=== PATIENT | female | born 1945 | race Caucasian/White ===

== ENCOUNTER 2017-06-10 16:27 | Observation (INO) | payer MEDICAID ==
[~2017-06-10] VITALS: Ht 152.4 cm; Wt 55.8 kg
[2017-06-10 18:46] LABS: BASOPHILS % 1.2 % (0.0-2.0); HEMATOCRIT. 34.5 % (36.0-48.0); HEMOGLOBIN. 11.6 g/dL (12.0-16.0); LYMPHOCYTES % 28.4 % (20.0-50.0); MEAN CORPUSCULAR HEMOGLOBIN 28.9 pg (28.0-32.0); MEAN CORPUSCULAR VOLUME 85.7 fL (81.0-99.0); MEAN PLATELET VOLUME 9.5 fl (7.4-10.4); MONOCYTES % 6.5 % (2.0-8.0); NEUTROPHILS % 61.9 % (40.0-76.0); PLATELET 217 x1000/uL (130-400); RED BLOOD CELL COUNT 4.03 mill/uL (4.2-5.4); RED CELL DISTRIBUTION WIDTH 14.6 % (11.6-14.6)
[2017-06-10 18:51] LABS: INR 0.9; PROTHROMBIN TIME 9.5 sec (9.4-11.6)
[2017-06-10 18:55] LABS: CHLORIDE 111 mEq/L (98-107)
[2017-06-10] MEDS ORDERED: SODIUM CHLORIDE 0.9% 1,000 ML IV ONE (19:18)
[2017-06-10] MEDS ORDERED: LOSA25TA12 PO (21:33)
[2017-06-10] MEDS ORDERED: NORT10CA PO (21:33)
[2017-06-10] MEDS ORDERED: HYDR-4134 PO (21:34)
[2017-06-10] MEDS ORDERED: AMLO10TA80 PO (21:35)
[2017-06-10] MEDS ORDERED: ATEN50TA PO (21:35)
[2017-06-10] MEDS ORDERED: AMLODIPINE 10MG TABLET PO ONE (21:45)
[2017-06-11] VITALS (7 sets, daily range): BP systolic 144–184; BP diastolic 49–82
[2017-06-11] MEDS ORDERED: DEXTROSE 50% WATER 50ML SYRINGE IV PRN (04:15)
[2017-06-11] MEDS: HYDRALAZINE HCL 50MG TABLET PO SCH ×3 (06:30→21:51)
[2017-06-11] MEDS: NITROGLYCERIN OINT 1GM/INCH UDPKT TD SCH ×3 (06:30→17:12)
[2017-06-11] MEDS: BLOOD SUGAR DIAGNOSTIC STRIP TEST SCH ×4 (06:33→21:48)
[2017-06-11] MEDS: INSULIN LISPRO 100 UNITS/ML SUBCUT SCH ×4 (06:34→21:49)
[2017-06-11] MEDS: ACETAMINOPHEN 325MG TABLET PO PRN ×2 (06:35→17:13)
[2017-06-11] MEDS: SODIUM CHLORIDE 0.9% 1,000 ML IV SCH (06:36)
[2017-06-11] MEDS: NORTRIPTYLINE HCL 10MG CAPSULE PO SCH (08:42)
[2017-06-11] MEDS: ATENOLOL 50 MG TABLET PO SCH (08:42)
[2017-06-11] MEDS: HEPARIN 5000 UNITS/ML VIAL SUBCUT SCH ×2 (08:43→21:48)
[2017-06-11] MEDS: AMLODIPINE 10MG TABLET PO SCH (08:43)
[2017-06-11] MEDS: LOSARTAN POTASSIUM 100 MG TABLET PO SCH (08:43)
[2017-06-11] MEDS ORDERED: MEDICATION NOT ON FORMULARY EA (Nortriptyline Hcl 1 CAP) PO SCH (09:00)
[2017-06-11 09:31] LABS: BASOPHILS % 0.7 % (0.0-2.0); HEMATOCRIT. 32.8 % (36.0-48.0); HEMOGLOBIN. 10.9 g/dL (12.0-16.0); LYMPHOCYTES % 32.7 % (20.0-50.0); MEAN CORPUSCULAR HEMOGLOBIN 28.3 pg (28.0-32.0); MEAN CORPUSCULAR VOLUME 85.6 fL (81.0-99.0); MEAN PLATELET VOLUME 9.4 fl (7.4-10.4); MONOCYTES % 7.6 % (2.0-8.0); PLATELET 238 x1000/uL (130-400); RED BLOOD CELL COUNT 3.83 mill/uL (4.2-5.4); RED CELL DISTRIBUTION WIDTH 14.9 % (11.6-14.6)
[2017-06-11] MEDS ORDERED: CLONIDINE 0.1MG TABLET PO PRN (12:15)
[2017-06-11] MEDS: GABAPENTIN 300MG CAPSULE PO SCH ×2 (13:22→21:50)
[2017-06-12] VITALS (7 sets, daily range): BP systolic 126–154; BP diastolic 46–62
[2017-06-12] MEDS: NITROGLYCERIN OINT 1GM/INCH UDPKT TD SCH ×4 (00:16→17:09)
[2017-06-12] MEDS: SODIUM CHLORIDE 0.9% 1,000 ML IV SCH (00:16)
[2017-06-12] MEDS: HYDRALAZINE HCL 50MG TABLET PO SCH ×2 (06:02→13:14)
[2017-06-12] MEDS: BLOOD SUGAR DIAGNOSTIC STRIP TEST SCH ×3 (06:04→17:40)
[2017-06-12] MEDS: GABAPENTIN 300MG CAPSULE PO SCH ×2 (06:04→13:13)
[2017-06-12] MEDS: INSULIN LISPRO 100 UNITS/ML SUBCUT SCH ×2 (08:10→13:14)
[2017-06-12] MEDS: ATENOLOL 50 MG TABLET PO SCH (09:00)
[2017-06-12] MEDS: NORTRIPTYLINE HCL 10MG CAPSULE PO SCH (09:28)
[2017-06-12] MEDS: LOSARTAN POTASSIUM 100 MG TABLET PO SCH (09:28)
[2017-06-12] MEDS: AMLODIPINE 10MG TABLET PO SCH (09:28)
[2017-06-12] MEDS: HEPARIN 5000 UNITS/ML VIAL SUBCUT SCH (09:29)
== END 2017-06-12 18:33 | disposition home or self-care (01) ==
LOC: ER 16:36 → 7WST 21:00 → INTOOBSV 21:00 → EDBEDREQTM 21:02 → EDBEDREQ 21:02 → ENRESERV 23:03
PROVIDERS: ADMIT Internal Medicine; ATTEND Internal Medicine
DX: I12.9 Hypertensive chronic kidney disease with stage 1 through stage 4 chronic kidney disease, or unspecified chronic kidney disease (principal); N18.9 Chronic kidney disease, unspecified; E11.22 Type 2 diabetes mellitus with diabetic chronic kidney disease; E43 Unspecified severe protein-calorie malnutrition; Z82.49 Family history of ischemic heart disease and other diseases of the circulatory system
CPT/HCPCS: 36415; 71045; 80048; 80053; 82962; 85025; 85610; 96360; 96361; 96372; 99285; G0378; J1644; J1815; J7030

== ENCOUNTER 2017-11-28 23:43 | Inpatient (IN) | payer MEDICAID ==
[~2017-11-28] VITALS: Ht 149.9 cm; Wt 54.0 kg
[~2017-11-28 23:43] MED LIST: AMLO10TA80 PO; ATEN50TA PO; HYDR-4134 PO; LOSA25TA12 PO; NORT10CA PO
[2017-11-29] VITALS (14 sets, daily range): BP systolic 150–192; BP diastolic 40–116
[2017-11-29] MEDS ORDERED: KETOROLAC 30MG/ML VIAL IV STA (03:00)
[2017-11-29 03:46] LABS: BASOPHILS % 0.1 % (0.0-2.0); EOSINOPHILS % 0.2 % (0.0-5.0); HEMATOCRIT. 25.7 % (36.0-48.0); LYMPHOCYTES % 12.7 % (20.0-50.0); MEAN CORPUSCULAR HEMOGLOBIN 29.7 pg (28.0-32.0); MEAN CORPUSCULAR VOLUME 84.3 fL (81.0-99.0); MEAN PLATELET VOLUME 9.7 fl (7.4-10.4); PLATELET 178 x1000/uL (130-400); RED BLOOD CELL COUNT 3.05 mill/uL (4.2-5.4); RED CELL DISTRIBUTION WIDTH 13.5 % (11.6-14.6)
[2017-11-29 03:47] LABS: CHLORIDE 82 mEq/L (98-107)
[2017-11-29 04:00] LABS: D-DIMER 1.87 mg/L FEU (<0.50); PARTIAL THROMBOPLASTIN TIME 29.7 sec (23.4-31.0); PROTHROMBIN TIME 10.4 sec (9.4-11.6)
[2017-11-29] MEDS ORDERED: ENOXAPARIN 60MG/0.6ML SYR SUBCUT NR (05:15)
[2017-11-29] MEDS ORDERED: SODIUM CHLORIDE 0.9% 1,000 ML IV NR (05:15)
[2017-11-29] MEDS ORDERED: FURO20TA4 PO (06:05)
[2017-11-29] MEDS ORDERED: ATEN50TA PO (06:05)
[2017-11-29] MEDS ORDERED: VIT1TABL71 PO (06:05)
[2017-11-29] MEDS ORDERED: SERT50TA12 PO (06:05)
[2017-11-29] MEDS ORDERED: LOSA100T14 PO (06:05)
[2017-11-29] MEDS ORDERED: SODI650T PO (06:05)
[2017-11-29] MEDS ORDERED: VIT1TABL86 PO (06:05)
[2017-11-29] MEDS ORDERED: ONDANSETRON HCL 4MG/2ML VIAL IV PRN (08:30)
[2017-11-29] MEDS ORDERED: IPRATROPIUM/ALBUTEROL 0.5-3(2.5)MG/3ML NEB INH PRN (08:30)
[2017-11-29] MEDS ORDERED: NITROGLYCERIN 0.4MG TABLET SL SL PRN (08:30)
[2017-11-29] MEDS ORDERED: ENOXAPARIN 40MG/0.4ML SYR SUBCUT SCH (08:30)
[2017-11-29] MEDS ORDERED: NA PHOS,M-B/NA PHOS,DI-BA ENEMA 118ML PR PRN (08:30)
[2017-11-29] MEDS ORDERED: ZOLPIDEM TARTRATE 5MG TABLET PO PRN (08:30)
[2017-11-29] MEDS ORDERED: LORAZEPAM 0.5MG TABLET PO PRN (08:30)
[2017-11-29] MEDS ORDERED: MAGNESIUM/ALUMINUM HYDROXIDE/SIMETHICONE 30ML UDC PO PRN (08:30)
[2017-11-29] MEDS ORDERED: FAMOTIDINE 20MG TABLET PO SCH (09:00)
[2017-11-29] MEDS: METOPROLOL TARTRATE 25MG TABLET PO SCH ×2 (09:00→21:08)
[2017-11-29] MEDS ORDERED: ONDANSETRON 4MG ODT PO PRN (09:15)
[2017-11-29] MEDS: FAMOTIDINE 20MG TABLET PO SCH (09:16)
[2017-11-29] MEDS: FOLIC ACID/VITAMIN B COMP W-C TABLET PO SCH (09:16)
[2017-11-29] MEDS: AMLODIPINE 10MG TABLET PO SCH (09:17)
[2017-11-29] MEDS ORDERED: SODIUM CHLORIDE 0.9% 1,000 ML IV SCH (09:30)
[2017-11-29] MEDS ORDERED: GABA-529 MT (10:51)
[2017-11-29] MEDS: FUROSEMIDE 40MG/4ML VIAL IVP SCH (11:12)
[2017-11-29 11:31] LABS: BG BASE EXCESS -9.5 mmol/L (-2.0-2.0); BG CARBOXYHEMOGLOBIN 0.3 % (0.5-1.5); BG DEOXYHEMOGLOBIN 10.1 % (0.0-5.0); BG FRACTION INSPIRED OXYGEN 21; BG HCO3 ACT 15.4 mmol/L (22.0-26.0); BG METHEMOGLOBIN 0.3 % (0.0-1.5); BG OXYGEN SATURATION 89.8 % (92.0-98.5); BG OXYHEMOGLOBIN 89.3 % (94.0-97.0); BG PCO2 30.3 mmHg (35.0-45.0); BG PH 7.325 (7.350-7.450); BG PO2 58.6 mmHg (75.0-100.0); BG SAMPLE SITE RIGHT RADIAL; BG TOTAL HEMOGLOBIN 10.1 g/dL (12.0-18.0); BG VENT MODE ROOM AIR
[2017-11-29] MEDS: MORPHINE SULFATE 4 MG/ML CPJ (NOT FOR IM USE) IV PRN (11:42)
[2017-11-29] MEDS ORDERED: SODIUM CHLORIDE 3% 500 ML IV SCH (12:00)
[2017-11-29] MEDS ORDERED: GABAPENTIN 100MG CAPSULE PO SCH (14:00)
[2017-11-29] MEDS: GABAPENTIN 100MG CAPSULE PO SCH ×2 (15:13→21:27)
[2017-11-29 16:31] LABS: CREATINE KINASE MB FRACTION 14.4 ng/mL (0.5-3.6)
[2017-11-29] MEDS: IPRATROPIUM/ALBUTEROL 0.5-3(2.5)MG/3ML NEB HHN SCH ×2 (16:53→20:04)
[2017-11-29 17:01] LABS: SODIUM URINE RANDOM 51 mEq/L
[2017-11-29 17:07] LABS: CANNABINOID URINE SCREEN NEGATIVE (NEGATIVE); PHENCYCLIDINE URINE SCREEN NEGATIVE (NEGATIVE)
[2017-11-29 17:08] LABS: *AMPHETAMINES SCREEN URINE NEGATIVE (NEGATIVE); *BARBITURATES SCREEN URINE NEGATIVE (NEGATIVE); *BENZODIAZEPINES SCREEN URINE NEGATIVE (NEGATIVE); *COCAINE SCREEN URINE NEGATIVE (NEGATIVE); METHADONE URINE SCREEN NEGATIVE (NEGATIVE); OPIATES URINE SCREEN NEGATIVE (NEGATIVE)
[2017-11-29] MEDS ORDERED: DEXTROSE 50% WATER 50ML SYRINGE IV PRN (18:45)
[2017-11-29] MEDS ORDERED: EPOETIN ALFA 4000UNITS/ML VIAL SUBCUT SCH (21:00)
[2017-11-29] MEDS: BLOOD SUGAR DIAGNOSTIC STRIP TEST SCH (21:09)
[2017-11-29] MEDS: INSULIN LISPRO 100 UNITS/ML SUBCUT SCH (21:24)
[2017-11-29 21:58] LABS: CREATINE KINASE MB FRACTION 15.6 ng/mL (0.5-3.6)
[2017-11-30] VITALS (15 sets, daily range): BP systolic 124–177; BP diastolic 51–88
[2017-11-30] MEDS: CLONIDINE 0.1MG TABLET PO PRN (01:13)
[2017-11-30] MEDS: IPRATROPIUM/ALBUTEROL 0.5-3(2.5)MG/3ML NEB HHN SCH ×3 (01:16→20:50)
[2017-11-30] MEDS: BLOOD SUGAR DIAGNOSTIC STRIP TEST SCH ×4 (06:36→21:21)
[2017-11-30] MEDS: GABAPENTIN 100MG CAPSULE PO SCH ×3 (06:37→21:32)
[2017-11-30 06:47] LABS: BASOPHILS % 0.4 % (0.0-2.0); EOSINOPHILS % 0.9 % (0.0-5.0); HEMATOCRIT. 21.6 % (36.0-48.0); HEMOGLOBIN. 7.6 g/dL (12.0-16.0); LYMPHOCYTES % 20.2 % (20.0-50.0); MEAN CORPUSCULAR HEMOGLOBIN 29.6 pg (28.0-32.0); MEAN PLATELET VOLUME 9.8 fl (7.4-10.4); MONOCYTES % 8.3 % (2.0-8.0); NEUTROPHILS % 70.2 % (40.0-76.0); PLATELET 164 x1000/uL (130-400); RED BLOOD CELL COUNT 2.58 mill/uL (4.2-5.4); RED CELL DISTRIBUTION WIDTH 13.5 % (11.6-14.6)
[2017-11-30] MEDS: INSULIN LISPRO 100 UNITS/ML SUBCUT SCH ×4 (07:20→21:00)
[2017-11-30 07:43] LABS: PHOSPHORUS 5.5 mg/dL (2.5-4.9)
[2017-11-30] MEDS: DOCUSATE SODIUM 100MG CAPSULE PO PRN (07:53)
[2017-11-30] MEDS: FUROSEMIDE 40MG/4ML VIAL IVP SCH (07:53)
[2017-11-30] MEDS: FOLIC ACID/VITAMIN B COMP W-C TABLET PO SCH (07:53)
[2017-11-30] MEDS: FAMOTIDINE 20MG TABLET PO SCH (07:53)
[2017-11-30] MEDS: METOPROLOL TARTRATE 25MG TABLET PO SCH ×2 (07:53→21:32)
[2017-11-30] MEDS: AMLODIPINE 10MG TABLET PO SCH (07:53)
[2017-11-30] MEDS: ENOXAPARIN 30MG/0.3ML SYR SUBCUT SCH (07:54)
[2017-11-30] MEDS ORDERED: NA PHOS,M-B/NA PHOS,DI-BA ENEMA 118ML PR PRN (11:00)
[2017-11-30 11:26] LABS: CANNABINOID URINE SCREEN NEGATIVE (NEGATIVE); PHENCYCLIDINE URINE SCREEN NEGATIVE (NEGATIVE)
[2017-11-30 11:27] LABS: *AMPHETAMINES SCREEN URINE NEGATIVE (NEGATIVE); *BARBITURATES SCREEN URINE NEGATIVE (NEGATIVE); *BENZODIAZEPINES SCREEN URINE NEGATIVE (NEGATIVE); *COCAINE SCREEN URINE NEGATIVE (NEGATIVE); METHADONE URINE SCREEN NEGATIVE (NEGATIVE); OPIATES URINE SCREEN NEGATIVE (NEGATIVE)
[2017-11-30 12:30] LABS: CREATINE KINASE MB FRACTION 8.4 ng/mL (0.5-3.6)
[2017-11-30 13:28] LABS: TOTAL IRON BINDING CAPACITY 242 ug/dL (250-450)
[2017-11-30 13:41] LABS: HEPATITIS B CORE AB IGM NEGATIVE
[2017-11-30 13:54] LABS: HEPATITIS B SURFACE ANTIGEN REACTIVE PEND CONFIR
[2017-11-30] MEDS: MORPHINE SULFATE 4 MG/ML CPJ (NOT FOR IM USE) IV PRN (20:26)
[2017-11-30] MEDS: EPOETIN ALFA 10000UNITS/ML VIAL SUBCUT SCH (21:32)
[2017-12-01] VITALS (12 sets, daily range): BP systolic 126–161; BP diastolic 58–84
[2017-12-01] MEDS: IPRATROPIUM/ALBUTEROL 0.5-3(2.5)MG/3ML NEB HHN SCH ×4 (00:55→20:12)
[2017-12-01] MEDS: BLOOD SUGAR DIAGNOSTIC STRIP TEST SCH ×4 (06:27→20:59)
[2017-12-01] MEDS: GABAPENTIN 100MG CAPSULE PO SCH ×3 (06:31→21:00)
[2017-12-01] MEDS: LACTULOSE 20G/30ML UDC PO PRN (06:31)
[2017-12-01] MEDS: INSULIN LISPRO 100 UNITS/ML SUBCUT SCH ×4 (07:20→20:59)
[2017-12-01 07:48] LABS: BASOPHILS % 0.5 % (0.0-2.0); HEMATOCRIT. 24.8 % (36.0-48.0); HEMOGLOBIN. 8.6 g/dL (12.0-16.0); LYMPHOCYTES % 19.2 % (20.0-50.0); MEAN CORPUSCULAR HEMOGLOBIN 29.5 pg (28.0-32.0); MEAN CORPUSCULAR VOLUME 85.3 fL (81.0-99.0); MEAN PLATELET VOLUME 9.5 fl (7.4-10.4); NEUTROPHILS % 72.3 % (40.0-76.0); PLATELET 207 x1000/uL (130-400); RED BLOOD CELL COUNT 2.91 mill/uL (4.2-5.4)
[2017-12-01 08:02] LABS: PHOSPHORUS 3.7 mg/dL (2.5-4.9)
[2017-12-01 08:07] LABS: CREATINE KINASE MB FRACTION 18.6 ng/mL (0.5-3.6)
[2017-12-01] MEDS: DOCUSATE SODIUM 100MG CAPSULE PO PRN (08:11)
[2017-12-01] MEDS: FOLIC ACID/VITAMIN B COMP W-C TABLET PO SCH (08:11)
[2017-12-01] MEDS: FAMOTIDINE 20MG TABLET PO SCH (08:11)
[2017-12-01] MEDS: ENOXAPARIN 30MG/0.3ML SYR SUBCUT SCH (08:12)
[2017-12-01] MEDS: METOPROLOL TARTRATE 25MG TABLET PO SCH ×2 (08:12→21:00)
[2017-12-01] MEDS: FUROSEMIDE 40MG/4ML VIAL IVP SCH (08:12)
[2017-12-01] MEDS: AMLODIPINE 10MG TABLET PO SCH (08:12)
[2017-12-01] MEDS: NITROGLYCERIN OINT 1GM/INCH UDPKT TD SCH ×2 (12:05→17:31)
[2017-12-01] MEDS: ASPIRIN 81MG EC TABLET PO SCH ×2 (12:05→16:45)
[2017-12-01] MEDS: ATORVASTATIN CALCIUM 10MG TABLET PO SCH (20:59)
[2017-12-02] VITALS (16 sets, daily range): BP systolic 107–177; BP diastolic 50–90
[2017-12-02] MEDS: IPRATROPIUM/ALBUTEROL 0.5-3(2.5)MG/3ML NEB HHN SCH ×4 (01:54→19:35)
[2017-12-02] MEDS: NITROGLYCERIN OINT 1GM/INCH UDPKT TD SCH ×4 (03:03→17:39)
[2017-12-02] MEDS: MORPHINE SULFATE 4 MG/ML CPJ (NOT FOR IM USE) IV PRN ×2 (03:04→17:38)
[2017-12-02 05:50] LABS: CHLORIDE 100 mEq/L (98-107)
[2017-12-02 05:58] LABS: PHOSPHORUS 3.3 mg/dL (2.5-4.9)
[2017-12-02 06:01] LABS: BASOPHILS % 0.5 % (0.0-2.0); CREATINE KINASE 292 IU/L (26-192); EOSINOPHILS % 1.3 % (0.0-5.0); HEMOGLOBIN. 8.1 g/dL (12.0-16.0); LYMPHOCYTES % 14.6 % (20.0-50.0); MEAN CORPUSCULAR HEMOGLOBIN 29.4 pg (28.0-32.0); MEAN CORPUSCULAR VOLUME 86.8 fL (81.0-99.0); MONOCYTES % 6.7 % (2.0-8.0); NEUTROPHILS % 76.9 % (40.0-76.0); PLATELET 204 x1000/uL (130-400); RED BLOOD CELL COUNT 2.77 mill/uL (4.2-5.4); RED CELL DISTRIBUTION WIDTH 13.9 % (11.6-14.6)
[2017-12-02 06:03] LABS: CREATINE KINASE MB FRACTION 7.6 ng/mL (0.5-3.6)
[2017-12-02] MEDS: GABAPENTIN 100MG CAPSULE PO SCH ×3 (06:11→21:12)
[2017-12-02] MEDS: CLONIDINE 0.1MG TABLET PO PRN (06:11)
[2017-12-02] MEDS: BLOOD SUGAR DIAGNOSTIC STRIP TEST SCH ×4 (06:11→21:12)
[2017-12-02] MEDS: INSULIN LISPRO 100 UNITS/ML SUBCUT SCH ×4 (06:35→21:13)
[2017-12-02] MEDS: METOPROLOL TARTRATE 25MG TABLET PO SCH ×2 (08:18→21:12)
[2017-12-02] MEDS: FOLIC ACID/VITAMIN B COMP W-C TABLET PO SCH (08:18)
[2017-12-02] MEDS: DOCUSATE SODIUM 100MG CAPSULE PO PRN (08:19)
[2017-12-02] MEDS: AMLODIPINE 10MG TABLET PO SCH (08:19)
[2017-12-02] MEDS: ASPIRIN 81MG EC TABLET PO SCH ×2 (08:19→17:38)
[2017-12-02] MEDS: FAMOTIDINE 20MG TABLET PO SCH (08:19)
[2017-12-02 08:22] LABS: A/G RATIO 1.1 (0.7-1.7); ALBUMIN 2.6 g/dL (2.9-4.4); ALPHA-1-GLOBULIN 0.3 g/dL (0.0-0.4); ALPHA-2-GLOBULIN 0.9 g/dL (0.4-1.0); BETA GLOBULIN 0.7 g/dL (0.7-1.3); GAMMA GLOBULINS 0.5 g/dL (0.4-1.8); GLOBULIN TOTAL 2.4 g/dL (2.2-3.9); M-SPIKE Not Observed g/dL (Not Observed)
[2017-12-02] MEDS: FUROSEMIDE 40MG/4ML VIAL IVP SCH (09:00)
[2017-12-02] MEDS: ENOXAPARIN 30MG/0.3ML SYR SUBCUT SCH (09:00)
[2017-12-02] MEDS ORDERED: IODIXANOL 320MG/ML 100 ML BOTTLE IV ONE (09:09)
[2017-12-02] MEDS ORDERED: LIDOCAINE HCL 1% 20ML VIAL (Pyxis) INJ ONE ×2 (09:09→10:29)
[2017-12-02] MEDS ORDERED: ATROPINE SULFATE 1MG/10ML SYR IV PRN (10:15)
[2017-12-02] MEDS ORDERED: SODIUM BICARBONATE 4% (2.4MEQ) 5ML VIAL IV ONE (10:29)
[2017-12-02] MEDS ORDERED: CEFAZOLIN 1000MG PREMIX 50 ML IV ONE ×2 (10:30→10:31)
[2017-12-02] MEDS ORDERED: FENTANYL CITRATE/PF 50MCG/ML 2ML VIAL ONE (10:32)
[2017-12-02 14:22] LABS: ALBUMIN URINE 47.3 % (.); ALPHA-1-GLOBULIN URINE 2.7 % (.); ALPHA-2-GLOBULIN URINE 15.6 % (.); BETA GLOBULIN URINE 18.1 % (.); GAMMA GLOBULIN URINE 16.2 % (.); TOTAL PROTEIN RANDOM URINE 486.3 mg/dL (Not Estab.)
[2017-12-02] MEDS: ATORVASTATIN CALCIUM 10MG TABLET PO SCH (21:11)
[2017-12-02] MEDS: EPOETIN ALFA 10000UNITS/ML VIAL SUBCUT SCH (21:11)
[2017-12-03] VITALS (12 sets, daily range): BP systolic 92–157; BP diastolic 46–92
[2017-12-03] MEDS: NITROGLYCERIN OINT 1GM/INCH UDPKT TD SCH ×4 (00:22→17:07)
[2017-12-03] MEDS: IPRATROPIUM/ALBUTEROL 0.5-3(2.5)MG/3ML NEB HHN SCH ×5 (01:56→23:59)
[2017-12-03] MEDS: GABAPENTIN 100MG CAPSULE PO SCH ×3 (06:02→21:10)
[2017-12-03] MEDS: BLOOD SUGAR DIAGNOSTIC STRIP TEST SCH ×4 (06:03→21:11)
[2017-12-03 06:56] LABS: BASOPHILS % 0.5 % (0.0-2.0); HEMATOCRIT. 22.8 % (36.0-48.0); HEMOGLOBIN. 7.7 g/dL (12.0-16.0); LYMPHOCYTES % 19.9 % (20.0-50.0); MEAN CORPUSCULAR HEMOGLOBIN 29.4 pg (28.0-32.0); MEAN CORPUSCULAR VOLUME 87.3 fL (81.0-99.0); MEAN PLATELET VOLUME 9.4 fl (7.4-10.4); MONOCYTES % 6.9 % (2.0-8.0); NEUTROPHILS % 71.7 % (40.0-76.0); PLATELET 205 x1000/uL (130-400); RED BLOOD CELL COUNT 2.61 mill/uL (4.2-5.4); RED CELL DISTRIBUTION WIDTH 13.7 % (11.6-14.6)
[2017-12-03 08:28] LABS: PHOSPHORUS 2.9 mg/dL (2.5-4.9)
[2017-12-03] MEDS: AMLODIPINE 10MG TABLET PO SCH (08:48)
[2017-12-03] MEDS: FOLIC ACID/VITAMIN B COMP W-C TABLET PO SCH (08:48)
[2017-12-03] MEDS: METOPROLOL TARTRATE 25MG TABLET PO SCH ×2 (08:48→21:11)
[2017-12-03] MEDS: ASPIRIN 81MG EC TABLET PO SCH ×2 (08:48→17:07)
[2017-12-03] MEDS: FUROSEMIDE 40MG/4ML VIAL IVP SCH (08:48)
[2017-12-03] MEDS: DOCUSATE SODIUM 100MG CAPSULE PO PRN (08:48)
[2017-12-03] MEDS: FAMOTIDINE 20MG TABLET PO SCH (09:04)
[2017-12-03] MEDS: INSULIN LISPRO 100 UNITS/ML SUBCUT SCH ×4 (09:11→21:11)
[2017-12-03 15:06] LABS: HBSAG SCREEN Confirm. indicated (Negative)
[2017-12-03] MEDS: ENOXAPARIN 30MG/0.3ML SYR SUBCUT SCH (17:08)
[2017-12-03] MEDS: MORPHINE SULFATE 4 MG/ML CPJ (NOT FOR IM USE) IV PRN (17:49)
[2017-12-03] MEDS: ATORVASTATIN CALCIUM 10MG TABLET PO SCH (21:10)
[2017-12-04] VITALS (14 sets, daily range): BP systolic 98–152; BP diastolic 54–99
[2017-12-04] MEDS: NITROGLYCERIN OINT 1GM/INCH UDPKT TD SCH ×4 (00:07→17:04)
[2017-12-04 00:46] LABS: BG BASE EXCESS -3.1 mmol/L (-2.0-2.0); BG CARBOXYHEMOGLOBIN 0.3 % (0.5-1.5); BG DEOXYHEMOGLOBIN 15.5 % (0.0-5.0); BG FRACTION INSPIRED OXYGEN 40; BG HCO3 ACT 21.4 mmol/L (22.0-26.0); BG METHEMOGLOBIN 0.2 % (0.0-1.5); BG OXYGEN SATURATION 84.4 % (92.0-98.5); BG PCO2 36.1 mmHg (35.0-45.0); BG PH 7.391 (7.350-7.450); BG PO2 47.6 mmHg (75.0-100.0); BG SAMPLE SITE RIGHT BRACHIAL; BG TOTAL HEMOGLOBIN 9.1 g/dL (12.0-18.0); BG VENT MODE NASAL CANNULA
[2017-12-04] MEDS: IPRATROPIUM/ALBUTEROL 0.5-3(2.5)MG/3ML NEB HHN SCH ×4 (02:41→20:55)
[2017-12-04] MEDS: BLOOD SUGAR DIAGNOSTIC STRIP TEST SCH ×4 (06:42→19:58)
[2017-12-04] MEDS: GABAPENTIN 100MG CAPSULE PO SCH ×3 (06:42→21:40)
[2017-12-04] MEDS: FUROSEMIDE 40MG/4ML VIAL IVP SCH (08:09)
[2017-12-04] MEDS: FOLIC ACID/VITAMIN B COMP W-C TABLET PO SCH (08:09)
[2017-12-04] MEDS: INSULIN LISPRO 100 UNITS/ML SUBCUT SCH ×4 (08:09→21:46)
[2017-12-04] MEDS: ASPIRIN 81MG EC TABLET PO SCH ×2 (08:09→17:06)
[2017-12-04] MEDS: FAMOTIDINE 20MG TABLET PO SCH (08:10)
[2017-12-04] MEDS: METOPROLOL TARTRATE 25MG TABLET PO SCH ×2 (08:10→20:53)
[2017-12-04] MEDS: AMLODIPINE 10MG TABLET PO SCH (08:10)
[2017-12-04] MEDS: ENOXAPARIN 30MG/0.3ML SYR SUBCUT SCH (08:13)
[2017-12-04] MEDS: LACTULOSE 20G/30ML UDC PO PRN (08:17)
[2017-12-04 09:55] LABS: HEMATOCRIT. 22.6 % (36.0-48.0); HEMOGLOBIN. 7.3 g/dL (12.0-16.0); MEAN CORPUSCULAR HEMOGLOBIN 28.8 pg (28.0-32.0); MEAN CORPUSCULAR VOLUME 88.8 fL (81.0-99.0); MEAN PLATELET VOLUME 8.7 fl (7.4-10.4); PLATELET 209 x1000/uL (130-400); RED BLOOD CELL COUNT 2.55 mill/uL (4.2-5.4); RED CELL DISTRIBUTION WIDTH 14.2 % (11.6-14.6)
[2017-12-04] MEDS ORDERED: BISACODYL 10MG SUPP PR PRN (11:15)
[2017-12-04] MEDS ORDERED: SORBITOL 70% SOLN 30ML PO PRN (11:15)
[2017-12-04 13:06] LABS: HBSAG CONFIRMATION Positive (.)
[2017-12-04] MEDS ORDERED: LORAZEPAM 2MG/ML CPJ IV PRN (14:00)
[2017-12-04 14:28] LABS: PLATELET ESTIMATE NORMAL
[2017-12-04] MEDS: DOCUSATE SODIUM 100MG CAPSULE PO PRN (17:04)
[2017-12-04 17:06] LABS: BG BASE EXCESS 1.6 mmol/L (-2.0-2.0); BG DEOXYHEMOGLOBIN 2.3 % (0.0-5.0); BG FRACTION INSPIRED OXYGEN 50; BG HCO3 ACT 25.6 mmol/L (22.0-26.0); BG METHEMOGLOBIN 0.3 % (0.0-1.5); BG OXYGEN SATURATION 97.7 % (92.0-98.5); BG OXYHEMOGLOBIN 97.4 % (94.0-97.0); BG PCO2 37.6 mmHg (35.0-45.0); BG PH 7.451 (7.350-7.450); BG PO2 99.2 mmHg (75.0-100.0); BG SAMPLE SITE RIGHT RADIAL; BG TOTAL HEMOGLOBIN 8.4 g/dL (12.0-18.0); BG VENT MODE MASK - VENTI
[2017-12-04] MEDS ORDERED: POTASSIUM-SODIUM PHOSPHATE POWDER PACKET PO NR (18:00)
[2017-12-04] MEDS: ACETAMINOPHEN 325MG TABLET PO PRN (20:51)
[2017-12-04] MEDS: ATORVASTATIN CALCIUM 10MG TABLET PO SCH (20:52)
[2017-12-05] VITALS (22 sets, daily range): BP systolic 101–143; BP diastolic 45–86
[2017-12-05] MEDS: NITROGLYCERIN OINT 1GM/INCH UDPKT TD SCH ×5 (01:13→23:36)
[2017-12-05] MEDS: IPRATROPIUM/ALBUTEROL 0.5-3(2.5)MG/3ML NEB HHN SCH ×4 (02:41→20:50)
[2017-12-05] MEDS: GABAPENTIN 100MG CAPSULE PO SCH ×3 (06:11→21:10)
[2017-12-05] MEDS: BLOOD SUGAR DIAGNOSTIC STRIP TEST SCH ×4 (06:12→20:14)
[2017-12-05 06:32] LABS: BASOPHILS % 0.3 % (0.0-2.0); EOSINOPHILS % 1.2 % (0.0-5.0); HEMATOCRIT. 22.5 % (36.0-48.0); HEMOGLOBIN. 7.4 g/dL (12.0-16.0); LYMPHOCYTES % 11.6 % (20.0-50.0); MEAN CORPUSCULAR VOLUME 88.7 fL (81.0-99.0); MEAN PLATELET VOLUME 8.9 fl (7.4-10.4); MONOCYTES % 5.5 % (2.0-8.0); NEUTROPHILS % 81.4 % (40.0-76.0); PLATELET 213 x1000/uL (130-400); RED BLOOD CELL COUNT 2.54 mill/uL (4.2-5.4); RED CELL DISTRIBUTION WIDTH 14.1 % (11.6-14.6)
[2017-12-05] MEDS: DOCUSATE SODIUM 250MG CAPSULE PO SCH (08:07)
[2017-12-05] MEDS: FOLIC ACID/VITAMIN B COMP W-C TABLET PO SCH (08:07)
[2017-12-05] MEDS: ASPIRIN 81MG EC TABLET PO SCH ×2 (08:07→17:08)
[2017-12-05] MEDS: METOPROLOL TARTRATE 25MG TABLET PO SCH ×2 (08:07→21:00)
[2017-12-05] MEDS: FAMOTIDINE 20MG TABLET PO SCH (08:08)
[2017-12-05] MEDS: AMLODIPINE 10MG TABLET PO SCH (08:08)
[2017-12-05] MEDS: INSULIN LISPRO 100 UNITS/ML SUBCUT SCH ×4 (08:09→20:14)
[2017-12-05] MEDS: FUROSEMIDE 40MG/4ML VIAL IVP SCH (08:51)
[2017-12-05] MEDS: ENOXAPARIN 30MG/0.3ML SYR SUBCUT SCH (08:51)
[2017-12-05] MEDS: LACTULOSE 20G/30ML UDC PO SCH ×2 (09:00→13:46)
[2017-12-05 09:09] LABS: BG BASE EXCESS 0.9 mmol/L (-2.0-2.0); BG CARBOXYHEMOGLOBIN 0.5 % (0.5-1.5); BG DEOXYHEMOGLOBIN 2.3 % (0.0-5.0); BG FRACTION INSPIRED OXYGEN 32; BG HCO3 ACT 24.7 mmol/L (22.0-26.0); BG METHEMOGLOBIN 0.3 % (0.0-1.5); BG OXYGEN SATURATION 97.7 % (92.0-98.5); BG OXYHEMOGLOBIN 96.9 % (94.0-97.0); BG PCO2 35.8 mmHg (35.0-45.0); BG PH 7.457 (7.350-7.450); BG PO2 95.9 mmHg (75.0-100.0); BG SAMPLE SITE RIGHT BRACHIAL; BG TOTAL HEMOGLOBIN 7.9 g/dL (12.0-18.0); BG VENT MODE NASAL CANNULA
[2017-12-05] MEDS: ACETAMINOPHEN 325MG TABLET PO PRN ×2 (09:19→19:44)
[2017-12-05] MEDS: ATORVASTATIN CALCIUM 10MG TABLET PO SCH (21:10)
[2017-12-05] MEDS: EPOETIN ALFA 10000UNITS/ML VIAL SUBCUT SCH (21:10)
[2017-12-05] MEDS: GUAIFENESIN 200MG/10ML SUGAR FREE UDC PO PRN (23:34)
[2017-12-06] VITALS (12 sets, daily range): BP systolic 115–169; BP diastolic 60–98
[2017-12-06] MEDS: IPRATROPIUM/ALBUTEROL 0.5-3(2.5)MG/3ML NEB HHN SCH ×4 (01:58→20:47)
[2017-12-06] MEDS: ACETAMINOPHEN 325MG TABLET PO PRN ×3 (04:16→22:15)
[2017-12-06] MEDS: NITROGLYCERIN OINT 1GM/INCH UDPKT TD SCH ×3 (06:03→18:20)
[2017-12-06] MEDS: GABAPENTIN 100MG CAPSULE PO SCH ×3 (06:03→15:42)
[2017-12-06] MEDS: BLOOD SUGAR DIAGNOSTIC STRIP TEST SCH ×4 (06:05→21:00)
[2017-12-06 06:37] LABS: BASOPHILS % 0.2 % (0.0-2.0); EOSINOPHILS % 1.4 % (0.0-5.0); HEMATOCRIT. 31.6 % (36.0-48.0); LYMPHOCYTES % 12.8 % (20.0-50.0); MEAN CORPUSCULAR HEMOGLOBIN 29.3 pg (28.0-32.0); MEAN CORPUSCULAR VOLUME 84.4 fL (81.0-99.0); MEAN PLATELET VOLUME 8.8 fl (7.4-10.4); NEUTROPHILS % 77.6 % (40.0-76.0); PLATELET 169 x1000/uL (130-400); RED BLOOD CELL COUNT 3.74 mill/uL (4.2-5.4)
[2017-12-06 07:17] LABS: PHOSPHORUS 3.4 mg/dL (2.5-4.9)
[2017-12-06] MEDS: FUROSEMIDE 40MG/4ML VIAL IVP SCH (08:21)
[2017-12-06] MEDS: FOLIC ACID/VITAMIN B COMP W-C TABLET PO SCH (08:21)
[2017-12-06] MEDS: FAMOTIDINE 20MG TABLET PO SCH (08:21)
[2017-12-06] MEDS: DOCUSATE SODIUM 100MG CAPSULE PO PRN (08:21)
[2017-12-06] MEDS: ASPIRIN 81MG EC TABLET PO SCH ×2 (08:22→18:18)
[2017-12-06] MEDS: AMLODIPINE 10MG TABLET PO SCH (08:22)
[2017-12-06] MEDS: METOPROLOL TARTRATE 25MG TABLET PO SCH ×2 (08:22→22:15)
[2017-12-06] MEDS: INSULIN LISPRO 100 UNITS/ML SUBCUT SCH ×4 (08:23→21:00)
[2017-12-06] MEDS: DOCUSATE SODIUM 250MG CAPSULE PO SCH (09:00)
[2017-12-06] MEDS: ENOXAPARIN 30MG/0.3ML SYR SUBCUT SCH (09:00)
[2017-12-06] MEDS: LACTULOSE 20G/30ML UDC PO SCH (09:00)
[2017-12-06] MEDS ORDERED: LEVOFLOXACIN 500MG TABLET PO SCH (11:00)
[2017-12-06] MEDS: ATORVASTATIN CALCIUM 10MG TABLET PO SCH (22:15)
[2017-12-07] VITALS: BP 169/73
[2017-12-07] MEDS: IPRATROPIUM/ALBUTEROL 0.5-3(2.5)MG/3ML NEB HHN SCH ×4 (01:50→20:52)
[2017-12-07 04:00] VITALS: BP 161/68
[2017-12-07] MEDS: GABAPENTIN 100MG CAPSULE PO SCH ×3 (05:53→20:25)
[2017-12-07] MEDS: NITROGLYCERIN OINT 1GM/INCH UDPKT TD SCH ×3 (05:56→18:00)
[2017-12-07] MEDS: BLOOD SUGAR DIAGNOSTIC STRIP TEST SCH ×4 (06:29→20:25)
[2017-12-07 07:55] LABS: BASOPHILS % 0.3 % (0.0-2.0); EOSINOPHILS % 1.3 % (0.0-5.0); HEMATOCRIT. 33.4 % (36.0-48.0); HEMOGLOBIN. 11.4 g/dL (12.0-16.0); LYMPHOCYTES % 18.9 % (20.0-50.0); MEAN CORPUSCULAR HEMOGLOBIN 28.8 pg (28.0-32.0); MEAN CORPUSCULAR VOLUME 84.5 fL (81.0-99.0); MEAN PLATELET VOLUME 8.6 fl (7.4-10.4); MONOCYTES % 9.4 % (2.0-8.0); NEUTROPHILS % 70.1 % (40.0-76.0); PLATELET 181 x1000/uL (130-400); RED BLOOD CELL COUNT 3.96 mill/uL (4.2-5.4); RED CELL DISTRIBUTION WIDTH 15.5 % (11.6-14.6)
[2017-12-07] MEDS: FOLIC ACID/VITAMIN B COMP W-C TABLET PO SCH (08:37)
[2017-12-07] MEDS: FAMOTIDINE 20MG TABLET PO SCH (08:38)
[2017-12-07] MEDS: DOCUSATE SODIUM 250MG CAPSULE PO SCH (08:38)
[2017-12-07] MEDS: ASPIRIN 81MG EC TABLET PO SCH ×2 (08:38→16:49)
[2017-12-07] MEDS: LACTULOSE 20G/30ML UDC PO SCH (08:38)
[2017-12-07] MEDS: FUROSEMIDE 40MG/4ML VIAL IVP SCH (08:39)
[2017-12-07] MEDS: INSULIN LISPRO 100 UNITS/ML SUBCUT SCH ×3 (08:39→17:07)
[2017-12-07] MEDS: ENOXAPARIN 30MG/0.3ML SYR SUBCUT SCH (08:44)
[2017-12-07] MEDS: AMLODIPINE 10MG TABLET PO SCH (08:46)
[2017-12-07] MEDS: METOPROLOL TARTRATE 25MG TABLET PO SCH (08:46)
[2017-12-07 10:43] LABS: PHOSPHORUS 4.7 mg/dL (2.5-4.9)
[2017-12-07] MEDS: GUAIFENESIN 200MG/10ML SUGAR FREE UDC PO PRN (16:05)
[2017-12-07 20:00] VITALS: BP 149/74
[2017-12-07] MEDS: ATORVASTATIN CALCIUM 10MG TABLET PO SCH (20:25)
[2017-12-07] MEDS: ACETAMINOPHEN 325MG TABLET PO PRN (20:26)
[2017-12-07 22:06] VITALS: BP 149/74
== END 2017-12-07 22:40 | disposition home or self-care (01) | DRG 190 ==
LOC: ER 23:43 → 3WST 11-29 05:08 → ENRESERV 11-29 06:57 → 3WST 12-06 19:19 → 6EST 12-06 21:08
PROVIDERS: ADMIT Internal Medicine; ATTEND Internal Medicine
PROC: 02HV33Z Insertion of Infusion Device into Superior Vena Cava, Percutaneous Approach (ICD-10-PCS; 2017-11-29)
PROC: B548ZZA Ultrasonography of Superior Vena Cava, Guidance (ICD-10-PCS; 2017-11-29)
PROC: B5181ZA Fluoroscopy of Superior Vena Cava using Low Osmolar Contrast, Guidance (ICD-10-PCS; 2017-11-29)
PROC: 0JH63XZ Insertion of Tunneled Vascular Access Device into Chest Subcutaneous Tissue and Fascia, Percutaneous Approach (ICD-10-PCS; 2017-12-02)
PROC: 02HV33Z Insertion of Infusion Device into Superior Vena Cava, Percutaneous Approach (ICD-10-PCS; 2017-12-02)
PROC: B5181ZA Fluoroscopy of Superior Vena Cava using Low Osmolar Contrast, Guidance (ICD-10-PCS; 2017-12-02)
PROC: 4A023N7 Measurement of Cardiac Sampling and Pressure, Left Heart, Percutaneous Approach (ICD-10-PCS; 2017-12-02)
PROC: B2111ZZ Fluoroscopy of Multiple Coronary Arteries using Low Osmolar Contrast (ICD-10-PCS; 2017-12-02)
PROC: B41F1ZZ Fluoroscopy of Right Lower Extremity Arteries using Low Osmolar Contrast (ICD-10-PCS; 2017-12-02)
PROC: 02PYX3Z Removal of Infusion Device from Great Vessel, External Approach (ICD-10-PCS; 2017-12-02)
PROC: 30233N1 Transfusion of Nonautologous Red Blood Cells into Peripheral Vein, Percutaneous Approach (ICD-10-PCS; principal; 2017-12-05)
PROC: 5A1D70Z Performance of Urinary Filtration, Intermittent, Less than 6 Hours Per Day (ICD-10-PCS; 2017-12-05)
PROC: 5A1D70Z Performance of Urinary Filtration, Intermittent, Less than 6 Hours Per Day (ICD-10-PCS; 2017-12-05)
PROC: 5A1D70Z Performance of Urinary Filtration, Intermittent, Less than 6 Hours Per Day (ICD-10-PCS; 2017-12-05)
PROC: 5A1D70Z Performance of Urinary Filtration, Intermittent, Less than 6 Hours Per Day (ICD-10-PCS; 2017-12-05)
PROC: 5A1D70Z Performance of Urinary Filtration, Intermittent, Less than 6 Hours Per Day (ICD-10-PCS; 2017-12-05)
PROC: 5A1D70Z Performance of Urinary Filtration, Intermittent, Less than 6 Hours Per Day (ICD-10-PCS; 2017-12-05)
PROC: 5A09357 Assistance with Respiratory Ventilation, Less than 24 Consecutive Hours, Continuous Positive Airway Pressure (ICD-10-PCS; 2017-12-05)
DX: I21.4 Non-ST elevation (NSTEMI) myocardial infarction (principal); J96.01 Acute respiratory failure with hypoxia; N17.0 Acute kidney failure with tubular necrosis; I13.2 Hypertensive heart and chronic kidney disease with heart failure and with stage 5 chronic kidney disease, or end stage renal disease; E87.0 Hyperosmolality and hypernatremia; E87.2 Acidosis; B19.10 Unspecified viral hepatitis B without hepatic coma; J84.9 Interstitial pulmonary disease, unspecified; E11.22 Type 2 diabetes mellitus with diabetic chronic kidney disease; E11.40 Type 2 diabetes mellitus with diabetic neuropathy, unspecified; E44.1 Mild protein-calorie malnutrition; I50.9 Heart failure, unspecified; E83.52 Hypercalcemia; E87.1 Hypo-osmolality and hyponatremia; D64.9 Anemia, unspecified; E78.5 Hyperlipidemia, unspecified; F41.9 Anxiety disorder, unspecified; I25.10 Atherosclerotic heart disease of native coronary artery without angina pectoris; I35.0 Nonrheumatic aortic (valve) stenosis; K56.41 Fecal impaction; N18.6 End stage renal disease; Z82.49 Family history of ischemic heart disease and other diseases of the circulatory system; Z83.3 Family history of diabetes mellitus; Z68.24 Body mass index [BMI] 24.0-24.9, adult; Z90.49 Acquired absence of other specified parts of digestive tract; Z79.899 Other long term (current) drug therapy
CPT/HCPCS: 36415; 36556; 36558; 36589; 36600; 71045; 71250; 76700; 76937; 77001; 78582; 80048; 80053; 80061; 80305; 82375; 82533; 82550; 82553; 82805; 82962; 83036; 83540; 83550; 83735; 83880; 83930; 83935; 84100; 84155; 84156; 84165; 84166; 84300; 84443; 84484; 85025; 85379; 85610; 85730; 86705; 86706; 86803; 86850; 86900; 86920; 87340; 93005; 93306; 93458; 93922; 93970; 94640; 94660; 96361; 96372; 96374; 97116; 97162; 97166; 97530; 99285; A9558; C1750; C1752; C1760; C1769; C1887; C1893; J0690; J0885; J1642; J1644; J1650; J1815; J1885; J1940; J2060; J2270; J3010; J3490; J7030; J7050; J7620; P9016; Q9967

== ENCOUNTER 2018-02-03 22:13 | Inpatient (IN) | payer MEDICAID ==
[~2018-02-03] VITALS: Ht 147.3 cm; Wt 60.3 kg
[~2018-02-03 22:13] MED LIST changes: +FURO20TA4 PO; +GABA-529 MT; +LOSA100T14 PO; +SERT50TA12 PO; +SODI650T PO; +VIT1TABL71 PO; +VIT1TABL86 PO
[2018-02-03] MEDS ORDERED: ASPIRIN 81MG TABLET PO ONE (23:15)
[2018-02-03] MEDS ORDERED: NITROGLYCERIN OINT 1GM/INCH UDPKT TD ONE (23:15)
[2018-02-04 00:11] LABS: CHLORIDE 95 mEq/L (98-107)
[2018-02-04 00:14] LABS: BASOPHILS % 0.6 % (0.0-2.0); EOSINOPHILS % 1.2 % (0.0-5.0); HEMATOCRIT. 34.6 % (36.0-48.0); HEMOGLOBIN. 11.6 g/dL (12.0-16.0); LYMPHOCYTES % 20.2 % (20.0-50.0); MEAN CORPUSCULAR HEMOGLOBIN 30.6 pg (28.0-32.0); MEAN CORPUSCULAR VOLUME 91.5 fL (81.0-99.0); MEAN PLATELET VOLUME 10.5 fl (7.4-10.4); MONOCYTES % 5.2 % (2.0-8.0); NEUTROPHILS % 72.8 % (40.0-76.0); PLATELET 196 x1000/uL (130-400); RED BLOOD CELL COUNT 3.79 mill/uL (4.2-5.4); RED CELL DISTRIBUTION WIDTH 16.1 % (11.6-14.6)
[2018-02-04 00:22] LABS: PARTIAL THROMBOPLASTIN TIME 27.1 sec (23.4-31.0); PROTHROMBIN TIME 10.3 sec (9.1-11.1)
[2018-02-04] MEDS ORDERED: CLONIDINE 0.2MG TABLET PO ONE (00:45)
[2018-02-04] MEDS ORDERED: CLONIDINE 0.2MG TABLET PO NR (01:00)
[2018-02-04 04:36] VITALS: BP 143/49
[2018-02-04 08:00] VITALS: BP 148/54
[2018-02-04] MEDS: AMLODIPINE 10MG TABLET PO SCH (09:41)
[2018-02-04] MEDS: METOPROLOL TARTRATE 25MG TABLET PO SCH ×2 (09:41→21:00)
[2018-02-04 12:00] VITALS: BP 114/62
[2018-02-04] MEDS: LOSARTAN POTASSIUM 50 MG TABLET PO SCH (15:27)
[2018-02-04 16:00] VITALS: BP 147/46
[2018-02-04 20:23] VITALS: BP 162/70
[2018-02-04] MEDS ORDERED: MORPHINE SULFATE 4 MG/ML CPJ (NOT FOR IM USE) IV NR (20:30)
[2018-02-04 21:13] LABS: CREATINE KINASE MB FRACTION 1.4 ng/mL (0.5-3.6)
[2018-02-05] VITALS: BP 145/68
[2018-02-05 04:00] VITALS: BP_SYST 152; BP_SYST 169; BP_DIAS 54; BP_DIAS 65
[2018-02-05 06:35] LABS: PHOSPHORUS 2.6 mg/dL (2.5-4.9)
[2018-02-05 06:38] LABS: BASOPHILS % 0.6 % (0.0-2.0); EOSINOPHILS % 1.4 % (0.0-5.0); HEMATOCRIT. 27.3 % (36.0-48.0); HEMOGLOBIN. 9.6 g/dL (12.0-16.0); LYMPHOCYTES % 33.3 % (20.0-50.0); MEAN CORPUSCULAR HEMOGLOBIN 32.3 pg (28.0-32.0); MEAN CORPUSCULAR VOLUME 92.5 fL (81.0-99.0); MEAN PLATELET VOLUME 10.2 fl (7.4-10.4); MONOCYTES % 7.3 % (2.0-8.0); NEUTROPHILS % 57.4 % (40.0-76.0); PLATELET 153 x1000/uL (130-400); RED BLOOD CELL COUNT 2.96 mill/uL (4.2-5.4); RED CELL DISTRIBUTION WIDTH 16.1 % (11.6-14.6)
[2018-02-05 08:11] VITALS: BP 151/52
[2018-02-05] MEDS: LOSARTAN POTASSIUM 50 MG TABLET PO SCH (09:01)
[2018-02-05] MEDS: AMLODIPINE 10MG TABLET PO SCH (09:01)
[2018-02-05] MEDS: METOPROLOL TARTRATE 25MG TABLET PO SCH ×2 (09:01→21:45)
[2018-02-05] MEDS: FUROSEMIDE 80MG TABLET PO SCH (11:47)
[2018-02-05] MEDS: FOLIC ACID/VITAMIN B COMP W-C TABLET PO SCH (11:47)
[2018-02-05 12:06] VITALS: BP 156/50
[2018-02-05] MEDS ORDERED: DEXTROSE 50% WATER 50ML SYRINGE IV PRN (13:15)
[2018-02-05 15:58] VITALS: BP 147/49
[2018-02-05] MEDS: INSULIN LISPRO 100 UNITS/ML SUBCUT SCH ×2 (17:16→21:44)
[2018-02-05] MEDS: BLOOD SUGAR DIAGNOSTIC STRIP TEST SCH ×2 (17:16→21:00)
[2018-02-05 20:00] VITALS: BP 156/55
[2018-02-06] VITALS: BP 158/55
[2018-02-06 04:00] VITALS: BP 155/50
[2018-02-06] MEDS ORDERED: HYDROCODONE/ACETAMINOPHEN 5/325MG TABLET PO PRN (05:30)
[2018-02-06 06:18] LABS: BASOPHILS % 0.6 % (0.0-2.0); EOSINOPHILS % 2.6 % (0.0-5.0); HEMATOCRIT. 28.1 % (36.0-48.0); HEMOGLOBIN. 9.9 g/dL (12.0-16.0); LYMPHOCYTES % 32.7 % (20.0-50.0); MEAN CORPUSCULAR HEMOGLOBIN 32.6 pg (28.0-32.0); MEAN CORPUSCULAR VOLUME 92.8 fL (81.0-99.0); MEAN PLATELET VOLUME 10.4 fl (7.4-10.4); MONOCYTES % 7.3 % (2.0-8.0); NEUTROPHILS % 56.8 % (40.0-76.0); PLATELET 156 x1000/uL (130-400); RED BLOOD CELL COUNT 3.03 mill/uL (4.2-5.4); RED CELL DISTRIBUTION WIDTH 16.6 % (11.6-14.6)
[2018-02-06 06:36] LABS: PHOSPHORUS 4.4 mg/dL (2.5-4.9)
[2018-02-06] MEDS: BLOOD SUGAR DIAGNOSTIC STRIP TEST SCH ×2 (06:50→11:40)
[2018-02-06 08:02] VITALS: BP 160/68
[2018-02-06] MEDS: FOLIC ACID/VITAMIN B COMP W-C TABLET PO SCH (08:37)
[2018-02-06] MEDS: METOPROLOL TARTRATE 25MG TABLET PO SCH (08:37)
[2018-02-06] MEDS: FUROSEMIDE 80MG TABLET PO SCH (08:38)
[2018-02-06] MEDS: AMLODIPINE 10MG TABLET PO SCH (08:38)
[2018-02-06] MEDS: INSULIN LISPRO 100 UNITS/ML SUBCUT SCH ×2 (08:42→11:46)
[2018-02-06] MEDS ORDERED: LOSARTAN POTASSIUM 100 MG TABLET PO SCH (09:00)
[2018-02-06 12:00] VITALS: BP 165/66
[2018-02-06 13:46] VITALS: BP 134/74
[2018-02-07] MEDS ORDERED: EPOETIN ALFA 4000UNITS/ML VIAL SUBCUT SCH ×2 (09:00→21:00)
== END 2018-02-06 13:51 | disposition home or self-care (01) | DRG 133 ==
LOC: ER 22:13 → 6WST 02-04 01:32 → EDBEDREQ 02-04 01:35 → EDBEDREQTM 02-04 01:35 → ENRESERV 02-04 02:18
PROVIDERS: ADMIT Internal Medicine Critical Care Medicine; ATTEND Internal Medicine Critical Care Medicine
PROC: 5A1D70Z Performance of Urinary Filtration, Intermittent, Less than 6 Hours Per Day (ICD-10-PCS; principal; 2018-02-04)
DX: J96.00 Acute respiratory failure, unspecified whether with hypoxia or hypercapnia (principal); I13.2 Hypertensive heart and chronic kidney disease with heart failure and with stage 5 chronic kidney disease, or end stage renal disease; E11.22 Type 2 diabetes mellitus with diabetic chronic kidney disease; E11.319 Type 2 diabetes mellitus with unspecified diabetic retinopathy without macular edema; N18.6 End stage renal disease; I50.31 Acute diastolic (congestive) heart failure; E87.1 Hypo-osmolality and hyponatremia; I35.0 Nonrheumatic aortic (valve) stenosis; D64.9 Anemia, unspecified; E87.6 Hypokalemia; E78.5 Hyperlipidemia, unspecified; I25.10 Atherosclerotic heart disease of native coronary artery without angina pectoris; E78.00 Pure hypercholesterolemia, unspecified; Z82.49 Family history of ischemic heart disease and other diseases of the circulatory system; Z83.3 Family history of diabetes mellitus; Z90.710 Acquired absence of both cervix and uterus; Z99.2 Dependence on renal dialysis; Z90.49 Acquired absence of other specified parts of digestive tract; Z79.899 Other long term (current) drug therapy
CPT/HCPCS: 36415; 71045; 80048; 80053; 80061; 82550; 82553; 82962; 83036; 83735; 83880; 84100; 84484; 85025; 85610; 85730; 93005; 99285; J1815; J2270; J7030

== ENCOUNTER 2018-05-09 21:39 | Inpatient (IN) | payer MEDICAID ==
[~2018-05-09] VITALS: Ht 144.8 cm; Wt 56.3 kg
[~2018-05-09 21:39] MED LIST changes: -ATEN50TA PO; -GABA-529 MT; -HYDR-4134 PO; -LOSA25TA12 PO; -NORT10CA PO; -SERT50TA12 PO; -SODI650T PO
[2018-05-10] VITALS (11 sets, daily range): BP systolic 124–177; BP diastolic 61–87
[2018-05-10] MEDS ORDERED: MORPHINE SULFATE 2 MG/ML CPJ (NOT FOR IM USE) IV ONE (00:15)
[2018-05-10] MEDS ORDERED: MORPHINE SULFATE 4 MG/ML CPJ (NOT FOR IM USE) IV SCH (00:45)
[2018-05-10] MEDS ORDERED: MORPHINE SULFATE 4 MG/ML CPJ (NOT FOR IM USE) IV ONE (00:45)
[2018-05-10 00:56] LABS: BASOPHILS % 0.8 % (0.0-2.0); EOSINOPHILS % 2.5 % (0.0-5.0); HEMATOCRIT. 31.7 % (36.0-48.0); HEMOGLOBIN. 10.4 g/dL (12.0-16.0); MEAN CORPUSCULAR HEMOGLOBIN 32.1 pg (28.0-32.0); MEAN CORPUSCULAR VOLUME 97.6 fL (81.0-99.0); MEAN PLATELET VOLUME 9.1 fl (7.4-10.4); MONOCYTES % 9.4 % (2.0-8.0); NEUTROPHILS % 55.3 % (40.0-76.0); PLATELET 197 x1000/uL (130-400); RED BLOOD CELL COUNT 3.25 mill/uL (4.2-5.4); RED CELL DISTRIBUTION WIDTH 13.9 % (11.6-14.6)
[2018-05-10 01:04] LABS: PROTHROMBIN TIME 10.4 sec (9.1-11.1)
[2018-05-10 01:06] LABS: CHLORIDE 99 mEq/L (98-107)
[2018-05-10] MEDS ORDERED: ACETAMINOPHEN 325MG TABLET PO PRN ×2 (07:00→10:30)
[2018-05-10] MEDS: HEPARIN 5000 UNITS/ML VIAL SUBCUT SCH ×2 (08:39→21:26)
[2018-05-10] MEDS ORDERED: DOCUSATE SODIUM 100MG CAPSULE PO PRN (10:30)
[2018-05-10] MEDS ORDERED: FUROSEMIDE 20MG TABLET PO SCH (12:00)
[2018-05-10] MEDS: LOSARTAN POTASSIUM 100 MG TABLET PO SCH (12:08)
[2018-05-10] MEDS: SERTRALINE HCL 50MG TABLET PO SCH (12:08)
[2018-05-10] MEDS: ASPIRIN 325MG EC TABLET PO SCH (12:10)
[2018-05-10] MEDS: FUROSEMIDE 100MG/10ML VIAL IVP SCH (13:00)
[2018-05-10 13:10] LABS: FERRITIN 501 ng/mL (10-291)
[2018-05-10 13:17] LABS: VITAMIN B12 SERUM 1036 pg/mL (211-911)
[2018-05-10] MEDS: NITROGLYCERIN OINT 1GM/INCH UDPKT TD SCH (18:53)
[2018-05-10] MEDS: CILOSTAZOL 100MG TABLET PO SCH (21:23)
[2018-05-10] MEDS: FAMOTIDINE 20MG TABLET PO SCH (21:23)
[2018-05-10] MEDS: ATORVASTATIN CALCIUM 20MG TABLET PO SCH (21:23)
[2018-05-10] MEDS: SODIUM CHLORIDE 0.9% INJ 3ML FLUSH IVF SCH ×2 (22:00→22:25)
[2018-05-11] VITALS (11 sets, daily range): BP systolic 129–182; BP diastolic 56–88
[2018-05-11] MEDS: NITROGLYCERIN OINT 1GM/INCH UDPKT TD SCH ×2 (00:07→05:13)
[2018-05-11] MEDS: SODIUM CHLORIDE 0.9% INJ 3ML FLUSH IVF SCH ×3 (05:15→21:05)
[2018-05-11 06:40] LABS: BASOPHILS % 0.8 % (0.0-2.0); EOSINOPHILS % 1.7 % (0.0-5.0); HEMOGLOBIN. 10.1 g/dL (12.0-16.0); LYMPHOCYTES % 22.3 % (20.0-50.0); MEAN CORPUSCULAR HEMOGLOBIN 32.6 pg (28.0-32.0); MEAN CORPUSCULAR VOLUME 97.3 fL (81.0-99.0); MEAN PLATELET VOLUME 9.5 fl (7.4-10.4); MONOCYTES % 7.2 % (2.0-8.0); PLATELET 208 x1000/uL (130-400); RED BLOOD CELL COUNT 3.09 mill/uL (4.2-5.4); RED CELL DISTRIBUTION WIDTH 13.7 % (11.6-14.6)
[2018-05-11 06:56] LABS: PHOSPHORUS 5.5 mg/dL (2.5-4.9)
[2018-05-11] MEDS: AMLODIPINE 10MG TABLET PO SCH (09:00)
[2018-05-11] MEDS: SERTRALINE HCL 50MG TABLET PO SCH (09:33)
[2018-05-11] MEDS: LOSARTAN POTASSIUM 100 MG TABLET PO SCH (09:35)
[2018-05-11] MEDS: ASPIRIN 325MG EC TABLET PO SCH (09:35)
[2018-05-11] MEDS: CILOSTAZOL 100MG TABLET PO SCH ×2 (09:35→20:47)
[2018-05-11] MEDS: HEPARIN 5000 UNITS/ML VIAL SUBCUT SCH ×2 (09:36→20:48)
[2018-05-11] MEDS: FUROSEMIDE 100MG/10ML VIAL IVP SCH (09:42)
[2018-05-11] MEDS ORDERED: GLIPIZIDE XL 2.5MG TABLET PO NR (10:30)
[2018-05-11] MEDS ORDERED: DEXTROSE 50% WATER 50ML SYRINGE IV PRN (11:45)
[2018-05-11] MEDS: ISOSORBIDE MONONITRATE 60MG TABLET SR 24HR PO SCH (12:35)
[2018-05-11] MEDS: BLOOD SUGAR DIAGNOSTIC STRIP TEST SCH ×3 (12:37→20:43)
[2018-05-11] MEDS: INSULIN LISPRO 100 UNITS/ML SUBCUT SCH ×3 (13:24→20:55)
[2018-05-11] MEDS: HYDROCODONE/ACETAMINOPHEN 5/325MG TABLET PO PRN (15:48)
[2018-05-11] MEDS: ATORVASTATIN CALCIUM 20MG TABLET PO SCH (20:47)
[2018-05-11] MEDS: FAMOTIDINE 20MG TABLET PO SCH (20:47)
[2018-05-11] MEDS: CARVEDILOL 3.125 MG TABLET PO SCH (20:52)
[2018-05-12] VITALS (12 sets, daily range): BP systolic 125–160; BP diastolic 59–101
[2018-05-12] MEDS: HYDROCODONE/ACETAMINOPHEN 5/325MG TABLET PO PRN ×2 (04:27→12:29)
[2018-05-12] MEDS: SODIUM CHLORIDE 0.9% INJ 3ML FLUSH IVF SCH ×2 (05:08→14:13)
[2018-05-12] MEDS: BLOOD SUGAR DIAGNOSTIC STRIP TEST SCH ×2 (06:42→12:10)
[2018-05-12 06:54] LABS: BASOPHILS % 0.7 % (0.0-2.0); EOSINOPHILS % 1.7 % (0.0-5.0); HEMATOCRIT. 29.7 % (36.0-48.0); HEMOGLOBIN. 10.1 g/dL (12.0-16.0); LYMPHOCYTES % 27.2 % (20.0-50.0); MEAN CORPUSCULAR HEMOGLOBIN 32.8 pg (28.0-32.0); MEAN CORPUSCULAR VOLUME 96.5 fL (81.0-99.0); MEAN PLATELET VOLUME 9.4 fl (7.4-10.4); MONOCYTES % 10.2 % (2.0-8.0); NEUTROPHILS % 60.2 % (40.0-76.0); PLATELET 206 x1000/uL (130-400); RED BLOOD CELL COUNT 3.08 mill/uL (4.2-5.4); RED CELL DISTRIBUTION WIDTH 13.5 % (11.6-14.6)
[2018-05-12 07:56] LABS: PHOSPHORUS 5.7 mg/dL (2.5-4.9)
[2018-05-12] MEDS: INSULIN LISPRO 100 UNITS/ML SUBCUT SCH ×2 (08:19→12:18)
[2018-05-12] MEDS: ISOSORBIDE MONONITRATE 60MG TABLET SR 24HR PO SCH (08:25)
[2018-05-12] MEDS: SERTRALINE HCL 50MG TABLET PO SCH (08:25)
[2018-05-12] MEDS: ASPIRIN 325MG EC TABLET PO SCH (08:25)
[2018-05-12] MEDS: AMLODIPINE 10MG TABLET PO SCH (08:26)
[2018-05-12] MEDS: CARVEDILOL 3.125 MG TABLET PO SCH (08:26)
[2018-05-12] MEDS: CILOSTAZOL 100MG TABLET PO SCH (08:26)
[2018-05-12] MEDS: LOSARTAN POTASSIUM 100 MG TABLET PO SCH (08:26)
[2018-05-12] MEDS: FUROSEMIDE 100MG/10ML VIAL IVP SCH (08:42)
[2018-05-12] MEDS: HEPARIN 5000 UNITS/ML VIAL SUBCUT SCH (08:45)
== END 2018-05-12 18:15 | disposition home or self-care (01) | DRG 190 ==
LOC: ER 21:39 → 5EST 05-10 02:35 → ENRESERV 05-10 04:21
PROVIDERS: ADMIT Ophthalmology; ATTEND Ophthalmology
PROC: 5A1D70Z Performance of Urinary Filtration, Intermittent, Less than 6 Hours Per Day (ICD-10-PCS; 2018-05-10)
PROC: 5A1D70Z Performance of Urinary Filtration, Intermittent, Less than 6 Hours Per Day (ICD-10-PCS; principal; 2018-05-12)
DX: I21.4 Non-ST elevation (NSTEMI) myocardial infarction (principal); E44.0 Moderate protein-calorie malnutrition; E11.22 Type 2 diabetes mellitus with diabetic chronic kidney disease; E87.1 Hypo-osmolality and hyponatremia; B19.10 Unspecified viral hepatitis B without hepatic coma; E11.51 Type 2 diabetes mellitus with diabetic peripheral angiopathy without gangrene; E11.65 Type 2 diabetes mellitus with hyperglycemia; N18.6 End stage renal disease; N25.81 Secondary hyperparathyroidism of renal origin; I13.11 Hypertensive heart and chronic kidney disease without heart failure, with stage 5 chronic kidney disease, or end stage renal disease; D63.1 Anemia in chronic kidney disease; F32.9 Major depressive disorder, single episode, unspecified; E78.00 Pure hypercholesterolemia, unspecified; I35.0 Nonrheumatic aortic (valve) stenosis; E78.5 Hyperlipidemia, unspecified; I25.10 Atherosclerotic heart disease of native coronary artery without angina pectoris; M19.90 Unspecified osteoarthritis, unspecified site; W06.XXXA Fall from bed, initial encounter; Z99.2 Dependence on renal dialysis; Z90.49 Acquired absence of other specified parts of digestive tract; Z79.899 Other long term (current) drug therapy; Z82.49 Family history of ischemic heart disease and other diseases of the circulatory system; Z83.3 Family history of diabetes mellitus; Z68.26 Body mass index [BMI] 26.0-26.9, adult; Y93.89 Activity, other specified; Y92.89 Other specified places as the place of occurrence of the external cause; Y99.8 Other external cause status
CPT/HCPCS: 36415; 71045; 71250; 73502; 73562; 74176; 80048; 80061; 82550; 82607; 82728; 82962; 83036; 83540; 83550; 83735; 84100; 84443; 84484; 93005; 93306; 93923; 96374; 99291; J1644; J1815; J1940; J2270

== ENCOUNTER 2022-07-26 22:16 | Inpatient (IN) | payer MEDICARE, MEDICAID ==
[~2022-07-26] VITALS: Ht 149.9 cm; Wt 54.2 kg
[~2022-07-26 22:16] MED LIST changes: -LOSA100T14 PO; +LOSA100T32 PO
[2022-07-26 23:04] LABS: HEMATOCRIT. 29.7 % (36.0-48.0); MEAN CORPUSCULAR HEMOGLOBIN 32.7 pg (28.0-32.0); MEAN CORPUSCULAR VOLUME 97.4 fL (81.0-99.0); MEAN PLATELET VOLUME 9.5 fl (7.4-10.4); PLATELET 153 x1000/uL (130-400); RED BLOOD CELL COUNT 3.05 mill/uL (4.2-5.4); RED CELL DISTRIBUTION WIDTH 16.1 % (11.6-14.6)
[2022-07-26 23:07] LABS: CHLORIDE 97 mEq/L (98-107)
[2022-07-26 23:12] LABS: INR 1.1; PARTIAL THROMBOPLASTIN TIME 22.5 sec (23.4-31.0); PROTHROMBIN TIME 11.4 sec (9.6-11.0)
[2022-07-26 23:28] LABS: PLATELET ESTIMATE NORMAL
[2022-07-26] MEDS ORDERED: ALBUTEROL (0.083%) 2.5MG/3ML NEB HHN ONE (23:45)
[2022-07-26] MEDS ORDERED: CALCIUM CHLORIDE 1GM/10ML SYR IV ONE (23:45)
[2022-07-26] MEDS ORDERED: CEFTRIAXONE 1GM PREMIX 50 ML IV ONE (23:45)
[2022-07-27] VITALS (13 sets, daily range): BP systolic 125–191; BP diastolic 50–90
[2022-07-27 00:38] LABS: BG BASE EXCESS 0.8 mmol/L (-2.0-2.0); BG CARBOXYHEMOGLOBIN 0.3 % (0.5-1.5); BG DEOXYHEMOGLOBIN 1.2 % (0.0-5.0); BG FRACTION INSPIRED OXYGEN 80; BG METHEMOGLOBIN 0.3 % (0.0-1.5); BG OXYGEN SATURATION 98.8 % (92.0-98.5); BG OXYHEMOGLOBIN 98.2 % (94.0-97.0); BG PCO2 44.3 mmHg (35.0-45.0); BG PH 7.386 (7.350-7.450); BG PO2 171.7 mmHg (75.0-100.0); BG SAMPLE SITE LEFT RADIAL; BG TOTAL HEMOGLOBIN 9.7 g/dL (12.0-18.0); BG VENT MODE MASK - BIPAP
[2022-07-27] MEDS ORDERED: DOCUSATE SODIUM 100MG CAPSULE PO PRN (01:30)
[2022-07-27] MEDS ORDERED: ENOXAPARIN 40MG/0.4ML SYR SUBCUT SCH (01:30)
[2022-07-27] MEDS ORDERED: GUAIFENESIN 200MG/10ML SUGAR FREE UDC PO PRN (01:30)
[2022-07-27] MEDS: ASPIRIN 81MG EC TABLET PO SCH (01:30)
[2022-07-27] MEDS ORDERED: DEXTROSE 50% WATER 50ML SYRINGE IV PRN (01:30)
[2022-07-27] MEDS ORDERED: FUROSEMIDE 40MG/4ML VIAL IVP NR (01:30)
[2022-07-27] MEDS: ENOXAPARIN 30MG/0.3ML SYR SUBCUT SCH (03:48)
[2022-07-27 04:23] LABS: FOLIC ACID (FOLATE) SERUM > 20.00 ng/mL (>5.38); VITAMIN B12 SERUM 601 pg/mL (211-911)
[2022-07-27 04:45] LABS: FERRITIN 729 ng/mL (10-291)
[2022-07-27] MEDS: PANTOPRAZOLE 40MG DR TABLET PO SCH (08:12)
[2022-07-27] MEDS: INSULIN LISPRO 100 UNITS/ML SUBCUT SCH ×4 (08:20→20:42)
[2022-07-27] MEDS ORDERED: NIFEDIPINE XL 60MG TAB PO SCH (09:00)
[2022-07-27] MEDS ORDERED: AMLODIPINE 5MG TABLET PO SCH (09:00)
[2022-07-27] MEDS ORDERED: HYDRALAZINE HCL 50MG TABLET PO SCH (09:00)
[2022-07-27] MEDS: SERTRALINE HCL 50MG TABLET PO SCH (09:17)
[2022-07-27] MEDS: CLOPIDOGREL 75MG TABLET PO SCH (09:17)
[2022-07-27] MEDS: BLOOD SUGAR DIAGNOSTIC STRIP TEST SCH ×4 (09:17→20:08)
[2022-07-27] MEDS ORDERED: IPRATROPIUM BROMIDE (0.02%) 0.5MG/2.5ML NEB HHN PRN (09:30)
[2022-07-27] MEDS: CALCIUM ACETATE 667MG CAPSULE PO SCH ×3 (09:33→17:17)
[2022-07-27] MEDS: LOSARTAN POTASSIUM 100 MG TABLET PO SCH (09:33)
[2022-07-27] MEDS: METOPROLOL SUCCINATE 50MG ER TABLET PO SCH (09:33)
[2022-07-27] MEDS: IPRATROPIUM BROMIDE (0.02%) 0.5MG/2.5ML NEB HHN SCH ×3 (09:45→21:37)
[2022-07-27 13:52] LABS: HEPATITIS B SURFACE ANTIGEN REACTIVE PEND CONFIR
[2022-07-27] MEDS: ACETAMINOPHEN 325MG TABLET PO PRN (17:17)
[2022-07-27] MEDS: CLONIDINE 0.1MG TABLET PO PRN (18:10)
[2022-07-27] MEDS: AMLODIPINE 10MG TABLET PO SCH (18:50)
[2022-07-27] MEDS: HYDRALAZINE HCL 50MG TABLET PO SCH (18:50)
[2022-07-27] MEDS: ATORVASTATIN CALCIUM 40MG TABLET PO SCH (20:41)
[2022-07-27] MEDS ORDERED: TERAZOSIN HCL 5MG CAPSULE PO NR (21:00)
[2022-07-27] MEDS ORDERED: TERAZOSIN HCL 5MG CAPSULE PO SCH (21:00)
[2022-07-28] VITALS (19 sets, daily range): BP systolic 116–182; BP diastolic 40–93
[2022-07-28] MEDS: ASPIRIN 81MG EC TABLET PO SCH (01:32)
[2022-07-28] MEDS: IPRATROPIUM BROMIDE (0.02%) 0.5MG/2.5ML NEB HHN SCH ×3 (02:14→21:47)
[2022-07-28] MEDS: ENOXAPARIN 30MG/0.3ML SYR SUBCUT SCH (03:26)
[2022-07-28 04:38] LABS: BASOPHILS % 0.6 % (0.0-2.0); HEMATOCRIT. 27.2 % (36.0-48.0); HEMOGLOBIN. 9.2 g/dL (12.0-16.0); LYMPHOCYTES % 14.7 % (20.0-50.0); MEAN CORPUSCULAR HEMOGLOBIN 32.8 pg (28.0-32.0); MEAN CORPUSCULAR VOLUME 97.6 fL (81.0-99.0); MEAN PLATELET VOLUME 9.3 fl (7.4-10.4); MONOCYTES % 6.4 % (2.0-8.0); NEUTROPHILS % 75.3 % (40.0-76.0); PLATELET 141 x1000/uL (130-400); RED BLOOD CELL COUNT 2.79 mill/uL (4.2-5.4); RED CELL DISTRIBUTION WIDTH 16.5 % (11.6-14.6)
[2022-07-28] MEDS: CLONIDINE 0.1MG TABLET PO PRN (05:01)
[2022-07-28 05:15] LABS: CHLORIDE 102 mEq/L (98-107); PHOSPHORUS 3.2 mg/dL (2.5-4.9); T4 FREE 0.73 ng/dL (0.76-1.46)
[2022-07-28] MEDS: BLOOD SUGAR DIAGNOSTIC STRIP TEST SCH ×4 (06:28→21:16)
[2022-07-28] MEDS: INSULIN LISPRO 100 UNITS/ML SUBCUT SCH ×4 (06:29→21:00)
[2022-07-28] MEDS: PANTOPRAZOLE 40MG DR TABLET PO SCH (06:40)
[2022-07-28] MEDS: METOPROLOL SUCCINATE 50MG ER TABLET PO SCH (09:00)
[2022-07-28] MEDS: HYDRALAZINE HCL 50MG TABLET PO SCH ×2 (09:48→17:00)
[2022-07-28] MEDS: LOSARTAN POTASSIUM 100 MG TABLET PO SCH (09:48)
[2022-07-28] MEDS: CLOPIDOGREL 75MG TABLET PO SCH (09:49)
[2022-07-28] MEDS: AMLODIPINE 10MG TABLET PO SCH ×2 (09:49→17:19)
[2022-07-28 10:51] LABS: CHLORIDE 101 mEq/L (98-107)
[2022-07-28] MEDS: ATORVASTATIN CALCIUM 40MG TABLET PO SCH (20:30)
[2022-07-28] MEDS ORDERED: EPOETIN ALFA-EPBX 4,000 UNIT/ML VIAL SUBCUT SCH (21:00)
[2022-07-28] MEDS: ACETAMINOPHEN 325MG TABLET PO PRN (23:41)
[2022-07-29] VITALS: BP 144/48
[2022-07-29] MEDS: ASPIRIN 81MG EC TABLET PO SCH (01:30)
[2022-07-29] MEDS: IPRATROPIUM BROMIDE (0.02%) 0.5MG/2.5ML NEB HHN SCH ×2 (02:21→08:14)
[2022-07-29] MEDS: ENOXAPARIN 30MG/0.3ML SYR SUBCUT SCH (02:25)
[2022-07-29 04:30] VITALS: BP 160/52
[2022-07-29 05:22] LABS: BASOPHILS % 0.8 % (0.0-2.0); EOSINOPHILS % 1.6 % (0.0-5.0); HEMOGLOBIN. 9.6 g/dL (12.0-16.0); MEAN CORPUSCULAR HEMOGLOBIN 33.3 pg (28.0-32.0); MEAN CORPUSCULAR VOLUME 96.7 fL (81.0-99.0); MEAN PLATELET VOLUME 9.3 fl (7.4-10.4); MONOCYTES % 5.8 % (2.0-8.0); NEUTROPHILS % 76.8 % (40.0-76.0); PLATELET 148 x1000/uL (130-400); RED BLOOD CELL COUNT 2.89 mill/uL (4.2-5.4); RED CELL DISTRIBUTION WIDTH 16.1 % (11.6-14.6)
[2022-07-29 05:57] LABS: CHLORIDE 97 mEq/L (98-107)
[2022-07-29] MEDS: INSULIN LISPRO 100 UNITS/ML SUBCUT SCH ×2 (06:38→11:54)
[2022-07-29] MEDS: BLOOD SUGAR DIAGNOSTIC STRIP TEST SCH ×2 (06:38→11:47)
[2022-07-29] MEDS: PANTOPRAZOLE 40MG DR TABLET PO SCH (06:39)
[2022-07-29 08:19] VITALS: BP 168/64
[2022-07-29] MEDS: METOPROLOL SUCCINATE 50MG ER TABLET PO SCH (08:49)
[2022-07-29] MEDS: LOSARTAN POTASSIUM 100 MG TABLET PO SCH (08:49)
[2022-07-29] MEDS: AMLODIPINE 10MG TABLET PO SCH (08:49)
[2022-07-29] MEDS: CLOPIDOGREL 75MG TABLET PO SCH (08:50)
[2022-07-29] MEDS: SERTRALINE HCL 50MG TABLET PO SCH (08:50)
[2022-07-29] MEDS: HYDRALAZINE HCL 50MG TABLET PO SCH (08:51)
[2022-07-29] MEDS ORDERED: FURO-151 MT (10:48)
[2022-07-29 10:58] VITALS: BP 158/50
[2022-07-29] MEDS: ACETAMINOPHEN 325MG TABLET PO PRN (12:04)
[2022-07-29 12:22] VITALS: BP 158/57
[2022-07-30 13:06] LABS: HBSAG CONFIRMATION Positive (.); HBSAG SCREEN Confirm. indicated (Negative)
== END 2022-07-29 13:55 | disposition home health service (06) | DRG 194 ==
LOC: ER 22:26 → MICUNO 07-27 00:07 → EDBEDREQTM 07-27 00:21 → EDBEDREQ 07-27 00:21 → 7EST 07-28 14:45
PROVIDERS: ADMIT Hospitalist; ATTEND Hospitalist
PROC: 5A09357 Assistance with Respiratory Ventilation, Less than 24 Consecutive Hours, Continuous Positive Airway Pressure (ICD-10-PCS; principal; 2022-07-26)
PROC: 5A1D70Z Performance of Urinary Filtration, Intermittent, Less than 6 Hours Per Day (ICD-10-PCS; 2022-07-27)
PROC: 5A1D70Z Performance of Urinary Filtration, Intermittent, Less than 6 Hours Per Day (ICD-10-PCS; 2022-07-28)
DX: I13.2 Hypertensive heart and chronic kidney disease with heart failure and with stage 5 chronic kidney disease, or end stage renal disease (principal); J96.01 Acute respiratory failure with hypoxia; I31.39 Other pericardial effusion (noninflammatory); N18.6 End stage renal disease; I27.20 Pulmonary hypertension, unspecified; D63.8 Anemia in other chronic diseases classified elsewhere; N25.81 Secondary hyperparathyroidism of renal origin; E11.22 Type 2 diabetes mellitus with diabetic chronic kidney disease; Z20.822 Contact with and (suspected) exposure to COVID-19; E87.5 Hyperkalemia; I50.33 Acute on chronic diastolic (congestive) heart failure; E78.5 Hyperlipidemia, unspecified; M81.0 Age-related osteoporosis without current pathological fracture; I08.3 Combined rheumatic disorders of mitral, aortic and tricuspid valves; Z99.2 Dependence on renal dialysis; Z95.5 Presence of coronary angioplasty implant and graft; Z82.49 Family history of ischemic heart disease and other diseases of the circulatory system; Z79.84 Long term (current) use of oral hypoglycemic drugs; Z79.899 Other long term (current) drug therapy; I25.2 Old myocardial infarction; Z79.82 Long term (current) use of aspirin; Z79.4 Long term (current) use of insulin
CPT/HCPCS: 36415; 36600; 71045; 80053; 80061; 82375; 82607; 82728; 82746; 82805; 82962; 83036; 83540; 83550; 83880; 84100; 84439; 84443; 84484; 85025; 86705; 86709; 86803; 86850; 86900; 87340; 87426; 90935; 93005; 93306; 94640; 94660; 97162; 97166; 97530; 97535; 99291; C9803; J0696; J0885; J1650; J1815; J1940; J3490